=== PATIENT | female | born 1970 ===

== ENCOUNTER 2017-06-24 08:36 | Outpatient (CLI) | payer OTHER ==
--- NOTE | 2017-06-24 09:49 | XRay Report ---
XRAY BILATERAL KNEE THREE VIEWS EACH: 06/24/17 08:36:00 CLINICAL: Bilateral knee pain. FINDINGS: Right: Mild osteopenia. No fracture or dislocation. Mild medial and lateral joint space narrowing. A tiny superior patellofemoral osteophyte. Normal soft tissues. Left: Mild osteopenia. No fracture or dislocation. Mild medial and lateral joint space narrowing. A small superior patellofemoral osteophyte. Quadriceps enthesophyte. Normal soft tissues. IMPRESSION: Mild bilateral patellofemoral osteoarthritis.
== END 2017-06-24 08:37 | disposition home or self-care (01) ==
LOC: SPVIMAG 08:36
PROVIDERS: ATTEND Orthopaedic Surgery Sports Medicine
DX: M17.0 Bilateral primary osteoarthritis of knee (principal); M85.861 Other specified disorders of bone density and structure, right lower leg; M85.862 Other specified disorders of bone density and structure, left lower leg